=== PATIENT | female | born 1985 | race Hispanic/Latino ===

== ENCOUNTER 2019-10-31 06:14 | Emergency (ER) | payer SELFPAY ==
[2019-10-31] MEDS ORDERED: CEPHALEXIN 500 MG CAPSULE ONE (07:00)
[2019-10-31] MEDS ORDERED: ACETAMINOPHEN EXTRA STRENGTH 500 MG TABLET ONE (07:00)
[2019-10-31 07:39] LABS: APPEARANCE,URINE Cloudy (CLEAR); BILIRUBIN,URINE Negative (NEGATIVE); COLOR,URINE Yellow (YELLOW); GLUCOSE, URINE (UA) >=1000 mg/dL (NEGATIVE); KETONES,URINE 40 mg/dL (NEGATIVE); LEUKOCYTE ESTERASE ,URINE Small (NEGATIVE); NITRATE,URINE Negative (NEGATIVE); OCCULT BLOOD,URINE Moderate (NEGATIVE); PH,URINE 5.5 (5.0-8.0); PROTEIN,URINE POS 1+ mg/dL (NEGATIVE)
[2019-10-31 07:53] LABS: BACTERIA,URINE Moderate /HPF (None Seen)
== END 2019-10-31 07:10 | disposition home or self-care (01) ==
LOC: EDH 06:14
DX: R50.9 Fever, unspecified (principal)
CPT/HCPCS: 81001; 81025; 87077; 87088; 87186

== ENCOUNTER 2021-04-28 21:49 | Emergency (ER) | payer OTHER ==
[~2021-04-28] VITALS: Ht 152.4 cm; Wt 84.4 kg
[2021-04-29 00:02] VITALS: BP 154/95
[2021-04-29 03:21] VITALS: BP 147/83
[2021-04-29 04:39] VITALS: BP 136/72
== END 2021-04-29 04:47 | disposition home or self-care (01) ==
LOC: EDH 21:49
DX: O20.0 Threatened abortion (principal); Z98.890 Other specified postprocedural states; Z3A.01 Less than 8 weeks gestation of pregnancy
CPT/HCPCS: 36415; 76801; 84702; 86900; 86901

== ENCOUNTER 2024-05-03 16:03 | Emergency (ER) | payer MEDICAID, OTHER ==
[~2024-05-03] VITALS: Ht 152.4 cm; Wt 87.5 kg
[2024-05-03 16:42] LABS: BASOPHILS # (AUTO) 0.04 K/uL (0.00-0.20); BASOPHILS % (AUTO) 0.3 % (0.0-5.0); EOSINOPHILS # (AUTO) 0.05 K/uL (0.00-0.70); EOSINOPHILS % (AUTO) 0.4 % (0.0-8.0); HEMATOCRIT 37.4 % (36-48); IMMATURE GRANULOCYTE ABSOLUTE 0.06 K/uL (0-1); LYMPHOCYTES # (AUTO) 1.3 K/uL (1.0-4.8); LYMPHOCYTES % (AUTO) 9.3 % (21.0-51.0); MEAN CORPUSCULAR HEMOGLOBIN 22.1 pg (27.0-33.0); MEAN CORPUSCULAR HGB CONC 31.3 g/dL (32.0-36.0); MEAN CORPUSCULAR VOLUME 70.7 fL (79-99); MONOCYTES # (AUTO) 0.5 K/uL (0.1-1.0); MONOCYTES % (AUTO) 3.6 % (3.0-13.0); NEUTROPHILS # (AUTO) 12.1 K/uL (1.8-7.7); PLATELET COUNT (AUTO) 308 K/uL (130-400); RED BLOOD CELL COUNT(AUTO) 5.29 MIL/uL (4.00-5.50); RED CELL DISTRIBUTION WIDTH 14.8 % (11.0-15.5); WHITE BLOOD COUNT (AUTO) 14.1 K/uL (4.8-10.8)
[2024-05-03 17:08] LABS: CREATININE 0.7 mg/dL (0.5-1.0); POTASSIUM 4.3 mmol/L (3.5-5.1)
[2024-05-03 17:16] LABS: ALBUMIN 3.1 g/dL (3.5-5.0); BILIRUBIN,TOTAL 0.4 mg/dL (0.2-1.0); TOTAL PROTEIN, SERUM 8.1 g/dL (6.0-8.3)
[2024-05-03] MEDS: ONDANSETRON ODT 4MG TAB SL ONE (21:32)
[2024-05-03 21:33] LABS: ADD UA MICROSCOPIC YES; APPEARANCE,URINE TURBID (CLEAR); BILIRUBIN,URINE NEGATIVE (NEGATIVE); COLOR,URINE LIGHT-ORANGE (YELLOW); GLUCOSE, URINE (UA) >=1000 mg/dL (NEGATIVE); KETONES,URINE 5 mg/dL (NEGATIVE); LEUKOCYTE ESTERASE ,URINE 500 Leu/uL (NEGATIVE); NITRATE,URINE NEGATIVE (NEGATIVE); OCCULT BLOOD,URINE MODERATE (NEGATIVE); PH,URINE 5.5 (5.0-8.0); PROTEIN,URINE 50 mg/dL (NEGATIVE); UROBILINOGEN,URINE 0.2 mg/dL (0.2-1.0)
[2024-05-03 21:34] LABS: HCG,QUALITATIVE URINE NEGATIVE (NEGATIVE)
[2024-05-03] MEDS: 0.9%NACL 1000ML 1,000 ML IV ONE (21:34)
[2024-05-03 21:39] LABS: BACTERIA,URINE FEW /HPF (None Seen); MUCUS,URINE RARE LPF (None Seen); SQUAMOUS EPITHELIAL CELL,UR FEW /HPF (0-2); UNCLASSIFIED CRYSTAL 2 /HPF (None Seen); WBC CLUMP MOD /HPF (0-1); WBC,URINE 51-100 /HPF (0-1); YEAST,URINE BUDDING RARE /HPF (None Seen)
[2024-05-03] MEDS: INSULIN HUMULIN R 100 UNIT/ML 3ML IV ONE (21:40)
[2024-05-03] MEDS ORDERED: METF-446 PO (22:00)
[2024-05-03] MEDS ORDERED: PHEN-847 PO (22:00)
[2024-05-03] MEDS ORDERED: AMOX1TAB16 PO (22:00)
[2024-05-03 22:24] VITALS: BP 151/76; PULSE 90; RESP 14; O2SAT 99
[2024-05-03] MEDS: AMOX/CLAV 875/125MG TAB PO ONE (22:25)
== END 2024-05-03 22:40 | disposition home or self-care (01) ==
LOC: EDH 16:03
DX: N30.01 Acute cystitis with hematuria (principal); E86.0 Dehydration; E11.65 Type 2 diabetes mellitus with hyperglycemia; Z91.018 Allergy to other foods; Z79.84 Long term (current) use of oral hypoglycemic drugs; Z79.899 Other long term (current) drug therapy; Z98.890 Other specified postprocedural states
CPT/HCPCS: 99283; 96374; 96361; 80053; 85025; 87086 ×2; 87186; 82948; 81001; 81025; 36415; J1815; J7030